=== PATIENT | female | born 1930 | race Caucasian/White ===

== ENCOUNTER 2019-06-14 12:18 | Emergency (ER) | payer MEDICARE, OTHER ==
[2019-06-14 12:30] VITALS: BP 155/92; PULSE 103
--- NOTE | 2019-06-14 12:40 | EDM.PDOC ---
ED HPI GENERAL MEDICAL PROBLEM - General Chief Complaint: ENT Problem Stated Complaint: toothache Time Seen by Provider: 06/14/19 12:37 Source of Information: Reports: Patient History Limitations: Reports: No Limitations - History of Present Illness INITIAL COMMENTS - FREE TEXT/NARRATIVE: Patient comes to ER with complaint of right upper tooth pain. Reports back molar broke 3-4 days ago. Plans to try to get to dentis on Sunday. Came in today as she felt that the gum was a little puffy around the tooth and her face appeared a bit swollen on that side. Some discomfort which is improved with Tylenol. No fevers. - Related Data Allergies Allergy/AdvReac Type Severity Reaction Status Date / Time nitrofurantoin Allergy Unknown Rash Verified 06/14/19 12:21 Penicillins Allergy Rash Verified 06/14/19 12:21 Sulfa (Sulfonamide Allergy Cannot Verified 06/14/19 12:21 Antibiotics) Remember sulfamethoxazole Allergy Shortness Verified 06/14/19 12:21 [From ] of Breath trimethoprim [From ] Allergy Shortness Verified 06/14/19 12:21 of Breath Home Meds: Home Meds Acetaminophen [Tylenol Extra Strength] 1,000 mg PO Q12H PRN 11/11/14 [History] Benazepril [Lotensin] 20 mg PO DAILY 11/11/14 [History] Calcium Carbonate/Vitamin D3 [Calcium 500-Vit D3 400 Tablet] 1 tab PO BID [History] Citalopram [Celexa] 20 mg PO DAILY 11/11/14 [History] Metoprolol Succinate [Toprol XL] 25 mg PO DAILY 11/11/14 [History] Polyvinyl Alcohol [LiquiTears 1.4% Ophth Soln] 1 drop EYEBOTH QID PRN 11/11/14 [ History] Simvastatin 20 mg PO BEDTIME 11/11/14 [History] Cephalexin [Keflex] 500 mg PO Q6H #16 capsule 06/14/19 [Rx] Psyllium Husk [Metamucil] 1 tsp PO BEDTIME 06/14/19 [History] Past Medical History HEENT History: Reports: Allergic Rhinitis, Impaired Vision, Other (See Below) Other HEENT History: wears bifocals Cardiovascular History: Reports: Arrhythmia, CAD, Cardiomyopathy, Heart Murmur, High Cholesterol, Hypertension, Pulmonary Hypertension, PVD, Other (See Below) Other Cardiovascular History: Mild Carotid occlusive disease, dyslipidemia, incomplete right bundle branch block, PACs, PVCs, aortic valve insufficiency, mitral valve insufficiency, pulmonary valve insufficiency, tricuspid valve insufficiency, diastolic dysfunction, and mild pulmonary hypertension by echocardiogram on 03/09/08 by echocardiogram, dyslipidemia with secondary LFTs elevation Respiratory History: Reports: COPD, Pulmonary Fibrosis, Other (See Below) Other Respiratory History: Nocturnal hypoxia Gastrointestinal History: Reports: Bowel Obstruction, Colon Polyp, Diverticulosis, Other (See Below) Other Gastrointestinal History: Severe sigmoid diverticulosis, bowel obstruction and large tubular adenoma of the ascending colon requiring surgery as below, history of fatty liver and LFTs elevation Genitourinary History: Reports: UTI, Recurrent, Other (See Below) 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: , 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 Other TANK MAKER WOOD History: Surgical menopause in her early 50s, SAB at 3 1/2 months gestation Musculoskeletal History: Reports: Back Pain, Chronic, Neck Pain, Chronic, Osteoarthritis, Osteoporosis, Other (See Below) Other Musculoskeletal History: Severe lumbar scoliosis with L3-L4 central spinal stenosis and small L4-L5 disc prolapse, hyperuricemia, right fifth proximal metatarsal fracture on 11/10/00 Neurological History: Reports: Neuropathy, Diabetic, Neuropathy, Peripheral, Other (See Below) Other Neuro History: Benign familial resting tremor Psychiatric History: Reports: Anxiety, Depression Endocrine/Metabolic History: Reports: Osteoporosis, Other (See Below) Other Endocrine/Metabolic History: Hyperglycemia-diet controlled - Past Surgical History HEENT Surgical History: Reports: Adenoidectomy, Tonsillectomy, Other (See Below) GI Surgical History: Reports: Appendectomy, Cholecystectomy, Colon, Colonoscopy , Hernia Repair/Other, Other (See Below) Female Surgical History: Reports: Breast Biopsy, D&C, Other (See Below) Musculoskeletal Surgical History: Reports: Knee Replacement, Other (See Below) - Past Imaging History Past Imaging History: Reports: Bone Scan, Cardiac Echo, Carotid US, DEXA Scan, Mammogram, Stress Testing, Ultrasound Social & Family History - Family History Cardiac: Reports: Heart Failure, Hypertension, Other (See Below) Other Cardiac Family History: Mother with fatal CHF at age 97, maternal aunt with fatal CHF at age 96, hypertension in mother and father Respiratory: Reports: COPD, Other (See Below) Other Respiratory Family Hisory: COPD in paternal aunt GI: Reports: Bowel Obstruction, Other (See Below) Other GI Family History: Paternal grandfather with fatal bowel obstruction at age 75 Musculoskeletal: Reports: Osteoporosis, Other (See Below) Other Musculoskeletal Family History: Mother with osteoporosis Neurological: Reports: CVA, Parkinson's, Other (See Below) Other Neurological Family History: Maternal grandfather with fatal CVA in his 70s, maternal aunt with several CVAs, benign resting tremor in father, paternal grandfather, and cousins, maternal uncle with fatal Parkinson's disease at age 88 Oncologic: Reports: Colon, Renal, Other (See Below) Other Oncologic Family History: Father with fatal renal cancer at age 68, brother with fatal colon cancer at age 40, first cousin with fatal colon cancer in her 70s, great niece with fatal possible parotid cancer at age 20 originally diagnosed at age 3 - Living Situation & Occupation Living situation: Reports: , Alone Occupation: Retired ED ROS GENERAL - Review of Systems Review Of Systems: Comprehensive ROS is negative, except as noted in HPI. ED EXAM, GENERAL - Physical Exam Exam: See Below Exam Limited By: No Limitations General Appearance: Alert, WD/WN, No Apparent Distress Eye Exam: Bilateral Eye: EOMI, PERRL Nose: No: Nasal Deformity, Nasal Swelling, Nasal Drainage Throat/Mouth: Normal Lips, Normal Voice, No Airway Compromise, Other (Dental condition is overall good considering patient's age. Exam of right back upper molar shows evidence of fracture. Mild swelling of surrounding gum tissue. No drainage noted. ) Head: Atraumatic, Other (minimal swelling over right lower face overlying affected tooth) Respiratory/Chest: No Respiratory Distress Extremities: Normal Capillary Refill, Other (moves all 4 limbs well) Neurological: Alert, Oriented, Normal Cognition Psychiatric: Normal Affect, Normal Mood Skin Exam: Warm, Dry, Intact, Normal Color Course - Vital Signs Last Recorded V/S: Last Vital Signs Temp 36.9 C 06/14/19 12:18 Pulse 103 H 06/14/19 12:18 Resp 20 06/14/19 12:18 BP 155/92 H 06/14/19 12:18 Pulse Ox 94 L 06/14/19 12:18 - Re-Assessments/Exams Free Text/Narrative Re-Assessment/Exam: 06/14/19 12:47 Will treat with Keflex. Patient cautioned concerning mild increase in reaction risk given her PCN allergy. She is to discontinue the Keflex if she has any problems and should be re-evaluated and have coverage adjusted if needed. She is to try to be seen on Sunday by dentist and have treatment plan formulated. She is agreeable with plan. Departure - Departure Time of Disposition: 12:39 Disposition: Home, Self-Care 01 Condition: Good Clinical Impression: Pain, dental - Discharge Information *PRESCRIPTION DRUG MONITORING PROGRAM REVIEWED*: Not Applicable *COPY OF PRESCRIPTION DRUG MONITORING REPORT IN PATIENT DESTIN: Not Applicable Referrals: Shirlene Jaquez, LOGGING TRUCK DRIVER [Primary Care Provider] - Forms: ED Department Discharge Additional Instructions: Take the antibiotic one pill every 6 hours. supervisor brine rest of prescription at pharmacy. Follow up with dentist catrachito next week. Follow up otherwise as needed if you have problems. Sepsis Event Note - Evaluation Sepsis Screening Result: No Definite Risk - Focused Exam Vital Signs: Vital Signs Temp Pulse Resp BP Pulse Ox 06/14/19 12:18 36.9 C 103 H 20 155/92 H 94 L Date Exam was Performed: 06/14/19 Time Exam was Performed: 12:40
== END 2019-06-14 13:00 | disposition home or self-care (01) ==
LOC: LL.ED 12:18
DX: K08.89 Other specified disorders of teeth and supporting structures (principal); I10 Essential (primary) hypertension; I25.10 Atherosclerotic heart disease of native coronary artery without angina pectoris; J44.9 Chronic obstructive pulmonary disease, unspecified; E11.42 Type 2 diabetes mellitus with diabetic polyneuropathy; F32.9 Major depressive disorder, single episode, unspecified; E78.00 Pure hypercholesterolemia, unspecified; Z79.899 Other long term (current) drug therapy; Z88.0 Allergy status to penicillin; Z88.1 Allergy status to other antibiotic agents; Z88.2 Allergy status to sulfonamides
CPT/HCPCS: 99282

== ENCOUNTER 2019-08-16 05:17 | Emergency (ER) | payer MEDICARE, OTHER ==
--- NOTE | 2019-08-16 06:19 | EDM.PDOC ---
ED HPI GENERAL MEDICAL PROBLEM - General Chief Complaint: General Stated Complaint: FALL, L SHOULDER PAIN Time Seen by Provider: 08/16/19 06:00 Source of Information: Reports: Patient History Limitations: Reports: No Limitations - History of Present Illness INITIAL COMMENTS - FREE TEXT/NARRATIVE: Patient thinks she slipped and apparently fell when trying to get out of bed to go to bathroom. Does not remember details of fall. Woke up on floor next to bed early this morning. Denies head/neck pain. No focal neuro changes. Has sore left shoulder with some bruising on the back of the shoulder. It hurts around the top of the shoulder, and pain radiates a bit down the top of the left arm and towards left neck. Denies left arm pain otherwise. No limb pain involving other limbs. Denies chest pain/SOB/pain along spine/mid back or low back pain. No pain in pelvis, is able to ambulate. No abdominal pain. Denies focal neuro changes/weakness/vision changes. No nausea/emesis/bowel changes/UTI complaints. No other complaints. Left Shoulder Pain Score (Numeric/FACES): 6 - Related Data Allergies Allergy/AdvReac Type Severity Reaction Status Date / Time nitrofurantoin Allergy Unknown Rash Verified 08/16/19 05:47 Penicillins Allergy Rash Verified 08/16/19 05:47 Sulfa (Sulfonamide Allergy Cannot Verified 08/16/19 05:47 Antibiotics) Remember sulfamethoxazole Allergy Shortness Verified 08/16/19 05:47 [From ] of Breath trimethoprim [From ] Allergy Shortness Verified 08/16/19 05:47 of Breath Home Meds: Home Meds Acetaminophen [Tylenol Extra Strength] 1,000 mg PO Q6H PRN 11/11/14 [History] Benazepril [Lotensin] 20 mg PO DAILY 11/11/14 [History] Calcium Carbonate/Vitamin D3 [Calcium 500-Vit D3 400 Tablet] 1 tab PO BID [History] Citalopram [Celexa] 20 mg PO DAILY 11/11/14 [History] Metoprolol Succinate [Toprol XL] 25 mg PO DAILY 11/11/14 [History] Polyvinyl Alcohol [LiquiTears 1.4% Ophth Soln] 1 drop EYEBOTH QID PRN 11/11/14 [ History] Simvastatin 20 mg PO BEDTIME 11/11/14 [History] Psyllium Husk [Metamucil] 1 tsp PO BEDTIME 06/14/19 [History] Multivit-Min/FA/Lycopen/Lutein [Centrum Silver Tablet] 1 each PO DAILY 08/16/19 [History] Past Medical History HEENT History: Reports: Allergic Rhinitis, Impaired Vision, Other (See Below) Other HEENT History: wears bifocals Cardiovascular History: Reports: Arrhythmia, CAD, Cardiomyopathy, Heart Murmur, High Cholesterol, Hypertension, Pulmonary Hypertension, PVD, Other (See Below) Other Cardiovascular History: Mild Carotid occlusive disease, dyslipidemia, incomplete right bundle branch block, PACs, PVCs, aortic valve insufficiency, mitral valve insufficiency, pulmonary valve insufficiency, tricuspid valve insufficiency, diastolic dysfunction, and mild pulmonary hypertension by echocardiogram on 03/09/08 by echocardiogram, dyslipidemia with secondary LFTs elevation Respiratory History: Reports: COPD, Pulmonary Fibrosis, Other (See Below) Other Respiratory History: Nocturnal hypoxia Gastrointestinal History: Reports: Bowel Obstruction, Colon Polyp, Diverticulosis, Other (See Below) Other Gastrointestinal History: Severe sigmoid diverticulosis, bowel obstruction and large tubular adenoma of the ascending colon requiring surgery as below, history of fatty liver and LFTs elevation Genitourinary History: Reports: UTI, Recurrent, Other (See Below) 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: , 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 Other CARBON COATER MACHINE OPERATOR History: Surgical menopause in her early 50s, SAB at 3 1/2 months gestation Musculoskeletal History: Reports: Back Pain, Chronic, Neck Pain, Chronic, Osteoarthritis, Osteoporosis, Other (See Below) Other Musculoskeletal History: Severe lumbar scoliosis with L3-L4 central spinal stenosis and small L4-L5 disc prolapse, hyperuricemia, right fifth proximal metatarsal fracture on 11/10/00 Neurological History: Reports: Neuropathy, Diabetic, Neuropathy, Peripheral, Other (See Below) Other Neuro History: Benign familial resting tremor Psychiatric History: Reports: Anxiety, Depression Endocrine/Metabolic History: Reports: Osteoporosis, Other (See Below) Other Endocrine/Metabolic History: Hyperglycemia-diet controlled - Past Surgical History HEENT Surgical History: Reports: Adenoidectomy, Tonsillectomy, Other (See Below) GI Surgical History: Reports: Appendectomy, Cholecystectomy, Colon, Colonoscopy , Hernia Repair/Other, Other (See Below) Female Surgical History: Reports: Breast Biopsy, D&C, Other (See Below) Musculoskeletal Surgical History: Reports: Knee Replacement, Other (See Below) - Past Imaging History Past Imaging History: Reports: Bone Scan, Cardiac Echo, Carotid US, DEXA Scan, Mammogram, Stress Testing, Ultrasound Social & Family History - Family History Cardiac: Reports: Heart Failure, Hypertension, Other (See Below) Other Cardiac Family History: Mother with fatal CHF at age 97, maternal aunt with fatal CHF at age 96, hypertension in mother and father Respiratory: Reports: COPD, Other (See Below) Other Respiratory Family Hisory: COPD in paternal aunt GI: Reports: Bowel Obstruction, Other (See Below) Other GI Family History: Paternal grandfather with fatal bowel obstruction at age 75 Musculoskeletal: Reports: Osteoporosis, Other (See Below) Other Musculoskeletal Family History: Mother with osteoporosis Neurological: Reports: CVA, Parkinson's, Other (See Below) Other Neurological Family History: Maternal grandfather with fatal CVA in his 70s, maternal aunt with several CVAs, benign resting tremor in father, paternal grandfather, and cousins, maternal uncle with fatal Parkinson's disease at age 88 Oncologic: Reports: Colon, Renal, Other (See Below) Other Oncologic Family History: Father with fatal renal cancer at age 68, brother with fatal colon cancer at age 40, first cousin with fatal colon cancer in her 70s, great niece with fatal possible parotid cancer at age 20 originally diagnosed at age 3 - Caffeine Use Caffeine Use: Reports: Coffee - Living Situation & Occupation Living situation: Reports: , Alone Occupation: Retired ED ROS GENERAL - Review of Systems Review Of Systems: Comprehensive ROS is negative, except as noted in HPI. ED EXAM, GENERAL - Physical Exam Exam: See Below Exam Limited By: No Limitations General Appearance: Alert, WD/WN, No Apparent Distress, Other (sitting in wheelchair) Eye Exam: Bilateral Eye: EOMI, PERRL Ears: Hearing Grossly Normal Nose: No: Nasal Deformity, Nasal Swelling, Nasal Drainage Throat/Mouth: Normal Lips, Normal Voice, No Airway Compromise Head: Atraumatic, Normocephalic Neck: Normal Inspection, Supple, Non-Tender, Full Range of Motion. No: Tender Lateral, Tender Midline Respiratory/Chest: No Respiratory Distress, No Accessory Muscle Use, Chest Non- Tender, Wheezing (scattered mild wheezing bilaterally) Cardiovascular: Regular Rate, Rhythm, No Murmur GI/Abdominal: Normal Bowel Sounds, Soft, Non-Tender, No Distention (Female) Exam: Deferred Rectal (Female) Exam: Deferred Back Exam: Other (Has several linear bruises noted over posterior left shoulder. Minimal tenderness over bruised area with palpation. Mild-mod discomfort with palpation over dorsal aspect of shoulder but no crepitus. Palpation of humerus/left arm showed no tenderness. 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 Right arm/shoulder nontender. No spinal tenderness with palpation. No tenderness with palpation of mid/lower back. ) Extremities: Normal Range of Motion, Non-Tender, Normal Capillary Refill, Other (no tenderness around pelvis) Neurological: Alert, Oriented, Normal Cognition, No Motor/Sensory Deficits Psychiatric: Normal Affect, Normal Mood Skin Exam: Warm, Dry, Intact, Ecchymosis Course - Vital Signs Last Recorded V/S: Last Vital Signs Temp 36.5 C 08/16/19 05:26 Pulse 82 08/16/19 05:55 Resp 17 08/16/19 05:55 BP 108/72 08/16/19 05:55 Pulse Ox 95 08/16/19 05:55 - Orders/Labs/Meds Orders: Active Orders 24 hr Category Date Time Status Shoulder Comp Lt [CR] Stat Exams 08/16/19 05:48 Ordered Labs: Laboratory Tests 08/16/19 08/16/19 08/16/19 Range/Units 06:05 06:05 06:10 WBC 9.8 (4.0-10.2) K/uL RBC 4.20 (3.77-5.09) M/uL Hgb 13.4 (11.7-15.5) g/dL Hct 38.5 (34.0-46.0) % MCV 91.7 D (84.0-98.0) fL MCH 31.9 (28.2-33.3) pg MCHC 34.8 (31.7-36.0) g/dL RDW 12.3 (11.2-14.1) % Plt Count 190 (150-350) K/uL Neut % (Auto) 81.9 H (45.0-80.0) % Lymph % (Auto) 10.1 (10.0-50.0) % [place] % (Auto) 7.6 (2.0-14.0) % Eos % (Auto) 0.2 (0.0-5.0) % Baso % (Auto) 0.2 (0.0-2.0) % Neut # (Auto) 8.06 H (1.40-7.00) K/uL Lymph # (Auto) 0.99 (0.50-3.50) K/uL [place] # (Auto) 0.75 (0.00-1.00) K/uL Eos # (Auto) 0.02 (0.00-0.50) K/uL Baso # (Auto) 0.02 (0.00-0.20) K/uL Sodium 133 L (136-145) mmol/L Potassium 4.9 (3.5-5.1) mmol/L Chloride 96 L (98-107) mmol/L Carbon Dioxide 24.4 (21.0-32.0) mmol/L BUN 14 (7-18) mg/dL Creatinine 0.74 (0.51-1.17) mg/dL Est Cr Clr Drug Dosing 51.09 mL/min Estimated GFR (MDRD) > 60 mL/min Glucose 84 (74-106) mg/dL Calcium 8.6 (8.5-10.1) mg/dL Total Bilirubin 0.4 (0.2-1.0) mg/dL AST 23 (15-37) U/L ALT 20 (12-78) U/L Alkaline Phosphatase 88 (46-116) IU/L Total Protein 6.8 (6.4-8.2) g/dL Albumin 3.6 (3.4-5.0) g/dL Specimen Type Urinvoid Urine Color Yellow Urine Appearance Clear Urine pH 5.0 (5.0-9.0) Ur Specific [place] 1.015 (1.005-1.030) Urine Protein Negative (NEGATIVE) mg/dL Urine Glucose (UA) Negative (NEGATIVE) mg/dL Urine Ketones Negative (NEGATIVE) mg/dL Urine Occult Blood Trace-intact H (NEGATIVE) Urine Nitrite Negative (NEGATIVE) Urine Bilirubin Negative (NEGATIVE) Urine Urobilinogen 0.2 (0.2-1.0) E.U./dL Ur Leukocyte Esterase Trace H (NEGATIVE) U Hyaline Cast (Auto) Moderate Urine RBC 0-5 /HPF Urine WBC Not seen /HPF Urine Bacteria Rare (NONE TO FEW) /HPF - Re-Assessments/Exams Free Text/Narrative Re-Assessment/Exam: Xray showed no obvious fracture. Radiology to review. Good overall ROM noted in affected arm. Labs overall unremarkable. OK to go home. Precautions reviewed. To follow up as needed. Ice packs/ tylenol ok. Will contact patient and family if Radiology suspects bone injury. Departure - Departure Time of Disposition: 06:56 Disposition: Home, Self-Care 01 Condition: Good Clinical Impression: Contusion of left shoulder or upper extremity - Discharge Information *PRESCRIPTION DRUG MONITORING PROGRAM REVIEWED*: Not Applicable *COPY OF PRESCRIPTION DRUG MONITORING REPORT IN PATIENT DESTIN: Not Applicable Referrals: Shirlene Jaquez, CURB ATTENDANT [Primary Care Provider] - Forms: ED Department Discharge Additional Instructions: Watch carefully for changes. Ice packs to help with pain. Follow up as needed. OK to take Tylenol for pain. Sepsis Event Note - Evaluation Sepsis Screening Result: No Definite Risk - Focused Exam Vital Signs: Vital Signs Temp Pulse Resp BP Pulse Ox 08/16/19 05:55 82 17 108/72 95 08/16/19 05:40 81 16 92/54 L 95 08/16/19 05:26 36.5 C 85 16 125/72 97 Date Exam was Performed: 08/16/19 Time Exam was Performed: 07:02 - My Orders Last 24 Hours: My Active Orders 08/16/19 05:48 Shoulder Comp Lt [CR] Stat - Assessment/Plan Last 24 Hours: My Active Orders 08/16/19 05:48 Shoulder Comp Lt [CR] Stat
[2019-08-16 06:28] LABS: CHLORIDE,CL 96 mmol/L (98-107); SODIUM,NA 133 mmol/L (136-145)
[2019-08-16 06:38] VITALS: BP 108/72; PULSE 82
== END 2019-08-16 07:10 | disposition home or self-care (01) ==
LOC: LL.ED 05:17
DX: S40.012A Contusion of left shoulder, initial encounter (principal); I25.10 Atherosclerotic heart disease of native coronary artery without angina pectoris; I11.9 Hypertensive heart disease without heart failure; I43 Cardiomyopathy in diseases classified elsewhere; E78.00 Pure hypercholesterolemia, unspecified; E78.5 Hyperlipidemia, unspecified; J44.9 Chronic obstructive pulmonary disease, unspecified; E11.42 Type 2 diabetes mellitus with diabetic polyneuropathy; F41.9 Anxiety disorder, unspecified; F32.9 Major depressive disorder, single episode, unspecified; E11.51 Type 2 diabetes mellitus with diabetic peripheral angiopathy without gangrene; Z88.0 Allergy status to penicillin; Z88.2 Allergy status to sulfonamides; Z88.1 Allergy status to other antibiotic agents; Z79.899 Other long term (current) drug therapy; W01.0XXA Fall on same level from slipping, tripping and stumbling without subsequent striking against object, initial encounter; Y93.89 Activity, other specified
CPT/HCPCS: 36415; 73030-LT; 80053; 81001; 85025; 99284-25

== ENCOUNTER 2021-05-02 14:27 | Emergency (ER) | payer MEDICARE, OTHER ==
[2021-05-02 15:13] VITALS: BP 137/75; PULSE 111
--- NOTE | 2021-05-02 16:12 | EDM.PDOC ---
ED HPI GENERAL MEDICAL PROBLEM - General Chief Complaint: Upper Extremity Injury/Pain Stated Complaint: left shoulder pain Time Seen by Provider: 05/02/21 15:20 Source of Information: Reports: Patient, Family History Limitations: Reports: No Limitations - History of Present Illness INITIAL COMMENTS - FREE TEXT/NARRATIVE: Pt. presents to ER with complaints of L shoulder pain. She states that she hit her shoulder on her walker when she was bent over receiving meals on wheels yesterday. She states that she may have injured it today when having a shower with a bath aid from home health. Denies denies any falls, and did not strike her head, although ROS is questionable as pt. has history of dementia. Denies any midline cervical, thoracic on lumbar spine pain. She is accompanied by her son who states that pt. appears about at baseline today from a cognitive standpoint. Pt. has a history of OA and had radiographs of the same shoulder 2 years ago. No pathology was noted at that time. Onset: Today Quality: Reports: Ache Other Treatments PERSONNEL MONITOR: None - Related Data Allergies Allergy/AdvReac Type Severity Reaction Status Date / Time nitrofurantoin Allergy Unknown Rash Verified 08/16/19 05:47 Penicillins Allergy Rash Verified 08/16/19 05:47 Sulfa (Sulfonamide Allergy Cannot Verified 08/16/19 05:47 Antibiotics) Remember sulfamethoxazole Allergy Shortness Verified 08/16/19 05:47 [From ] of Breath trimethoprim [From ] Allergy Shortness Verified 08/16/19 05:47 of Breath Home Meds: Home Meds Acetaminophen [Tylenol Extra Strength] 1,000 mg PO Q6H PRN 11/11/14 [History] Benazepril [Lotensin] 20 mg PO DAILY 11/11/14 [History] Calcium Carbonate/Vitamin D3 [Calcium 500-Vit D3 400 Tablet] 1 tab PO BID 11/11/14 [History] Citalopram [Celexa] 20 mg PO DAILY 11/11/14 [History] Metoprolol Succinate [Toprol XL] 25 mg PO DAILY 11/11/14 [History] Polyvinyl Alcohol [LiquiTears 1.4% Ophth Soln] 1 drop EYEBOTH QID PRN 11/11/14 [History] Simvastatin 20 mg PO BEDTIME 11/11/14 [History] Psyllium Husk [Metamucil] 1 tsp PO BEDTIME 06/14/19 [History] Multivit-Min/FA/Lycopen/Lutein [Centrum Silver Tablet] 1 each PO DAILY 08/16/19 [History] Past Medical History HEENT History: Reports: Allergic Rhinitis, Impaired Vision, Other (See Below) Other HEENT History: wears bifocals Cardiovascular History: Reports: Arrhythmia, CAD, Cardiomyopathy, Heart Murmur, High Cholesterol, Hypertension, Pulmonary Hypertension, PVD, Other (See Below) Other Cardiovascular History: Mild Carotid occlusive disease, dyslipidemia, incomplete right bundle branch block, PACs, PVCs, aortic valve insufficiency, mitral valve insufficiency, pulmonary valve insufficiency, tricuspid valve insufficiency, diastolic dysfunction, and mild pulmonary hypertension by echocardiogram on 03/09/08 by echocardiogram, dyslipidemia with secondary LFTs elevation Respiratory History: Reports: COPD, Pulmonary Fibrosis, Other (See Below) Other Respiratory History: Nocturnal hypoxia Gastrointestinal History: Reports: Bowel Obstruction, Colon Polyp, Diverticulosis, Other (See Below) Other Gastrointestinal History: Severe sigmoid diverticulosis, bowel obstruction and large tubular adenoma of the ascending colon requiring surgery as below, history of fatty liver and LFTs elevation Genitourinary History: Reports: UTI, Recurrent, Other (See Below) UND[employer] History: Reports: , Spontaneous Other UNDERGR[employer] INTER[employer] History: Surgical menopause in her early 50s, SAB at 3 1/2 months gestation Musculoskeletal History: Reports: Back Pain, Chronic, Neck Pain, Chronic, Osteoarthritis, Osteoporosis, Other (See Below) Other Musculoskeletal History: Severe lumbar scoliosis with L3-L4 central spinal stenosis and small L4-L5 disc prolapse, hyperuricemia, right fifth proximal metatarsal fracture on 11/10/00 Neurological History: Reports: Neuropathy, Diabetic, Neuropathy, Peripheral, Other (See Below) Other Neuro History: Benign familial resting tremor Psychiatric History: Reports: Anxiety, Depression Endocrine/Metabolic History: Reports: Osteoporosis, Other (See Below) Other Endocrine/Metabolic History: Hyperglycemia-diet controlled - Past Surgical History HEENT Surgical History: Reports: Adenoidectomy, Tonsillectomy, Other (See Below) GI Surgical History: Reports: Appendectomy, Cholecystectomy, Colon, Colonoscopy, Hernia Repair/Other, Other (See Below) Female Surgical History: Reports: Breast Biopsy, D&C, Other (See Below) Musculoskeletal Surgical History: Reports: Knee Replacement, Other (See Below) - Past Imaging History Past Imaging History: Reports: Bone Scan, Cardiac Echo, Carotid US, DEXA Scan, Mammogram, Stress Testing, Ultrasound Social & Family History - Family History Cardiac: Reports: Heart Failure, Hypertension, Other (See Below) Other Cardiac Family History: Mother with fatal CHF at age 97, maternal aunt with fatal CHF at age 96, hypertension in mother and father Respiratory: Reports: COPD, Other (See Below) Other Respiratory Family Hisory: COPD in paternal aunt GI: Reports: Bowel Obstruction, Other (See Below) Other GI Family History: Paternal grandfather with fatal bowel obstruction at age 75 Musculoskeletal: Reports: Osteoporosis, Other (See Below) Other Musculoskeletal Family History: Mother with osteoporosis Neurological: Reports: CVA, Parkinson's, Other (See Below) Other Neurological Family History: Maternal grandfather with fatal CVA in his 70s, maternal aunt with several CVAs, benign resting tremor in father, paternal grandfather, and cousins, maternal uncle with fatal Parkinson's disease at age 88 Oncologic: Reports: Colon, Renal, Other (See Below) Other Oncologic Family History: Father with fatal renal cancer at age 68, brother with fatal colon cancer at age 40, first cousin with fatal colon cancer in her 70s, great niece with fatal possible parotid cancer at age 20 originally diagnosed at age 3 - Caffeine Use Caffeine Use: Reports: Coffee - Living Situation & Occupation Living situation: Reports: , Alone Occupation: Retired Review of Systems - Review of Systems Review Of Systems: Comprehensive ROS is negative, except as noted in HPI. ED EXAM, GENERAL - Physical Exam Exam: See Below Exam Limited By: No Limitations General Appearance: Alert, WD/WN, No Apparent Distress Head: Atraumatic, Normocephalic Neck: Normal Inspection, Supple, Non-Tender, Full Range of Motion Back Exam: Normal Inspection, Full Range of Motion. No: Muscle Spasm, Paraspinal Tenderness, Vertebral Tenderness Extremities: Other (. Edema to posterior scapular area. No ecchymosis.) Neurological: Alert, CN II-XII Intact, Normal Gait, No Motor/Sensory Deficits, Memory Loss Remote Events, Memory Loss Recent Events Course - Vital Signs Last Recorded V/S: Last Vital Signs Temp 36.0 C L 05/02/21 15:00 Pulse 111 H 05/02/21 15:00 Resp 18 05/02/21 15:00 BP 137/75 05/02/21 15:00 Pulse Ox 95 05/02/21 15:00 - Orders/Labs/Meds Orders: Active Orders 24 hr Category Date Time Status Shoulder Comp Lt [CR] Stat Exams 05/02/21 14:29 Taken - Radiology Interpretation Free Text/Narrative:: Radiographs of L shoulder negative for acute pathology. Departure - Departure Time of Disposition: 15:45 Disposition: Home, Self-Care 01 Clinical Impression: Shoulder sprain - Discharge Information Instructions: Shoulder Sprain Referrals: Jessie Willis NP [Primary Care Provider] - Forms: ED Department Discharge Additional Instructions: Home to rest. No fracture was noted on x-rays. If the shoulder doesn't get better, you will need further imaging such as MRI. Continue with tylenol as needed for discomfort. Ice shoulder for 10 min every 1-2 hours. Recheck in clinic in 7-10 days Sepsis Event Note (ED) - Evaluation Sepsis Screening Result: No Definite Risk - Focused Exam Vital Signs: Vital Signs Temp Pulse Resp BP Pulse Ox 05/02/21 15:00 36.0 C L 111 H 18 137/75 95 - My Orders Last 24 Hours: My Active Orders 05/02/21 14:29 Shoulder Comp Lt [CR] Stat - Assessment/Plan Last 24 Hours: My Active Orders 05/02/21 14:29 Shoulder Comp Lt [CR] Stat Plan: Home to rest. No fracture was noted on x-rays. If the shoulder doesn't get better, you will need further imaging such as MRI. Continue with tylenol as needed for discomfort. Ice shoulder for 10 min every 1-2 hours. Recheck in clinic in 7-10 days
== END 2021-05-02 15:45 | disposition home or self-care (01) ==
LOC: LL.ED 14:27
DX: S43.402A Unspecified sprain of left shoulder joint, initial encounter (principal); R60.0 Localized edema; I25.10 Atherosclerotic heart disease of native coronary artery without angina pectoris; E78.00 Pure hypercholesterolemia, unspecified; I11.0 Hypertensive heart disease with heart failure; I50.30 Unspecified diastolic (congestive) heart failure; J44.9 Chronic obstructive pulmonary disease, unspecified; Z88.0 Allergy status to penicillin; Z88.2 Allergy status to sulfonamides; Z88.1 Allergy status to other antibiotic agents; W22.09XA Striking against other stationary object, initial encounter
CPT/HCPCS: 73030-LT; 99283